=== PATIENT | female | born 1930 | race Caucasian/White ===

== ENCOUNTER → 2019-09-08 | Outpatient (CLI) | payer MEDICARE, OTHER | END | disposition home or self-care (01) | LOC: RADPV 14:51 | PROVIDERS: ATTEND Internal Medicine Geriatric Medicine | DX: J44.9 Chronic obstructive pulmonary disease, unspecified (principal); I70.0 Atherosclerosis of aorta; I51.7 Cardiomegaly ==

== ENCOUNTER → 2019-11-17 | Outpatient (CLI) | payer MEDICARE, OTHER ==
[~2019-11-17] MED LIST: PERFLUTREN PROTEIN-A MICROSPHERES 0.22 MG/ML 3 ML VIAL IVP ONE
== END | disposition home or self-care (01) ==
LOC: RADPV 14:07
PROVIDERS: ATTEND Internal Medicine Cardiovascular Disease
DX: I08.0 Rheumatic disorders of both mitral and aortic valves (principal); I42.9 Cardiomyopathy, unspecified; I50.9 Heart failure, unspecified
CPT/HCPCS: C8929

== ENCOUNTER → 2020-03-14 | Outpatient (CLI) | payer MEDICARE, OTHER ==
[2020-03-14 15:25] LABS: APPEARANCE,URINE CLEAR (CLEAR); BILIRUBIN,URINE NEGATIVE (NEGATIVE); GLUCOSE, URINE (UA) NEGATIVE (NEGATIVE); KETONES,URINE NEGATIVE (NEGATIVE); LEUKOCYTE ESTERASE ,URINE NEGATIVE (NEGATIVE); NITRATE,URINE NEGATIVE (NEGATIVE); OCCULT BLOOD,URINE NEGATIVE (NEGATIVE); PH,URINE 6.5 (5.0-8.0); PROTEIN,URINE NEGATIVE (NEGATIVE)
[2020-03-14 17:51] LABS: BASOPHILS % (AUTO) 0.6 % (0.0-2.0); EOSINOPHILS % (AUTO) 2.1 % (1.0-6.0); HEMATOCRIT 44.8 % (36-46); HEMOGLOBIN 14.7 g/dL (12.0-16.0); LYMPHOCYTES # (AUTO) 3.8 K/uL (1.0-4.8); LYMPHOCYTES % (AUTO) 46.7 % (22.0-44.0); MEAN CORPUSCULAR HEMOGLOBIN 31.6 pg (26.0-34.0); MEAN CORPUSCULAR HGB CONC 32.8 G/dL (31.0-37.0); MEAN CORPUSCULAR VOLUME 96 fL (80-100); MONOCYTES # (AUTO) 0.9 K/uL (0.1-1.0); MONOCYTES % (AUTO) 11.4 % (2.0-9.0); NEUTROPHILS # (AUTO) 3.2 K/uL (1.8-7.7); NEUTROPHILS % (AUTO) 39.2 % (40.0-70.0); PLATELET COUNT (AUTO) 184 K/uL (150-450); RED BLOOD CELL COUNT(AUTO) 4.66 MIL/uL (4.00-5.20); RED CELL DISTRIBUTION WIDTH 14.6 % (11.5-14.5)
[2020-03-14 18:29] LABS: ALBUMIN 3.2 g/dL (3.4-5.0); CALCIUM, TOTAL 9.4 mg/dL (8.8-10.5); CHOL/HDL RATIO 3.1 (3.9-5.7); CREATININE 1.11 mg/dL (0.60-1.30); POTASSIUM 4.4 mmol/L (3.5-5.1); THYROID STIMULATING HORMONE 2.67 uIU/mL (0.36-3.74); TOTAL PROTEIN, SERUM 5.6 g/dL (6.4-8.2)
[2020-03-14 18:53] LABS: HEMOGLOBIN A1C 7.6 % (3.8-5.6)
== END | disposition home or self-care (01) ==
LOC: LABMN 14:50
PROVIDERS: ATTEND Internal Medicine Cardiovascular Disease
DX: D68.69 Other thrombophilia (principal); E26.1 Secondary hyperaldosteronism; I26.99 Other pulmonary embolism without acute cor pulmonale; E11.65 Type 2 diabetes mellitus with hyperglycemia; N39.0 Urinary tract infection, site not specified
CPT/HCPCS: 83036; 84443; 87086

== ENCOUNTER → 2020-03-26 | Outpatient (CLI) | payer MEDICARE, OTHER | END | disposition home or self-care (01) | LOC: LABMN 14:33 | PROVIDERS: ATTEND Internal Medicine Geriatric Medicine | DX: N39.0 Urinary tract infection, site not specified (principal) | CPT/HCPCS: 87086 ==

== ENCOUNTER → 2020-04-17 | Outpatient (CLI) | payer MEDICARE, OTHER ==
[2020-04-17 16:02] LABS: APPEARANCE,URINE CLOUDY (CLEAR); BILIRUBIN,URINE NEGATIVE (NEGATIVE); GLUCOSE, URINE (UA) NEGATIVE (NEGATIVE); KETONES,URINE NEGATIVE (NEGATIVE); LEUKOCYTE ESTERASE ,URINE LARGE (NEGATIVE); NITRATE,URINE NEGATIVE (NEGATIVE); OCCULT BLOOD,URINE NEGATIVE (NEGATIVE); PROTEIN,URINE NEGATIVE (NEGATIVE)
[2020-04-17 16:16] LABS: BACTERIA,URINE Many /HPF (None Seen); RBC,URINE 0-2 /HPF (0-2); SQUAMOUS EPITHELIAL CELL,UR Few /LPF (None Seen); WBC,URINE 51-100 /HPF (0-5)
== END | disposition home or self-care (01) ==
LOC: LABPV 14:45
PROVIDERS: ATTEND Internal Medicine Geriatric Medicine
DX: R41.82 Altered mental status, unspecified (principal)
CPT/HCPCS: 87086

== ENCOUNTER → 2020-05-11 | Outpatient (CLI) | payer MEDICARE, OTHER ==
[2020-05-11 15:17] LABS: APPEARANCE,URINE CLEAR (CLEAR); BILIRUBIN,URINE NEGATIVE (NEGATIVE); GLUCOSE, URINE (UA) NEGATIVE (NEGATIVE); KETONES,URINE NEGATIVE (NEGATIVE); LEUKOCYTE ESTERASE ,URINE NEGATIVE (NEGATIVE); NITRATE,URINE NEGATIVE (NEGATIVE); OCCULT BLOOD,URINE NEGATIVE (NEGATIVE); PH,URINE 5.5 (5.0-8.0); PROTEIN,URINE NEGATIVE (NEGATIVE); UROBILINOGEN,URINE 0.2 mg/dL (<=1.0)
== END | disposition home or self-care (01) ==
LOC: LABPV 13:48
PROVIDERS: ATTEND Internal Medicine Geriatric Medicine
DX: N39.0 Urinary tract infection, site not specified (principal)

== ENCOUNTER → 2020-12-14 | Outpatient (CLI) | payer MEDICARE, OTHER ==
[2020-12-14 14:08] LABS: BASOPHILS % (AUTO) 0.6 % (0.0-2.0); EOSINOPHILS % (AUTO) 3.7 % (1.0-6.0); HEMATOCRIT 39.9 % (36-46); HEMOGLOBIN 12.8 g/dL (12.0-16.0); LYMPHOCYTES # (AUTO) 3.2 K/uL (1.0-4.8); LYMPHOCYTES % (AUTO) 40.7 % (22.0-44.0); MEAN CORPUSCULAR HEMOGLOBIN 30.1 pg (26.0-34.0); MEAN CORPUSCULAR HGB CONC 32.1 G/dL (31.0-37.0); MEAN CORPUSCULAR VOLUME 94 fL (80-100); MONOCYTES # (AUTO) 0.9 K/uL (0.1-1.0); NEUTROPHILS # (AUTO) 3.4 K/uL (1.8-7.7); PLATELET COUNT (AUTO) 189 K/uL (150-450); RED BLOOD CELL COUNT(AUTO) 4.26 MIL/uL (4.00-5.20); RED CELL DISTRIBUTION WIDTH 15.4 % (11.5-14.5)
[2020-12-14 14:23] LABS: ALBUMIN 2.7 g/dL (3.4-5.0); BILIRUBIN,TOTAL 0.7 mg/dL (0.1-1.0); CALCIUM, TOTAL 8.9 mg/dL (8.8-10.5); CHOL/HDL RATIO 2.9 (3.9-5.7); CREATININE 1.47 mg/dL (0.60-1.30); POTASSIUM 4.2 mmol/L (3.5-5.1); TOTAL PROTEIN, SERUM 5.6 g/dL (6.4-8.2)
[2020-12-14 14:43] LABS: HEMOGLOBIN A1C 8.2 % (3.8-5.6)
== END | disposition home or self-care (01) ==
LOC: RADMN 15:24
PROVIDERS: ATTEND Internal Medicine Cardiovascular Disease
DX: I70.0 Atherosclerosis of aorta (principal); I27.20 Pulmonary hypertension, unspecified; I51.7 Cardiomegaly; E11.9 Type 2 diabetes mellitus without complications
CPT/HCPCS: 83036; 36415-L1; 36415-TC; 71046; 71046-TC; 80061-TC

== ENCOUNTER → 2021-02-01 | Outpatient (CLI) | payer MEDICARE, OTHER | END | disposition home or self-care (01) | LOC: RADMN 14:14 | PROVIDERS: ATTEND Internal Medicine Cardiovascular Disease | DX: R13.10 Dysphagia, unspecified (principal) | CPT/HCPCS: 74230; 92611 ==

== ENCOUNTER → 2021-04-10 | Outpatient (CLI) | payer MEDICARE, OTHER | END | disposition home or self-care (01) | LOC: LABMN 09:05 | PROVIDERS: ATTEND Internal Medicine Geriatric Medicine | DX: N39.0 Urinary tract infection, site not specified (principal); A49.8 Other bacterial infections of unspecified site | CPT/HCPCS: 87077; 87086; 87186 ==

== ENCOUNTER 2021-04-28 13:51 | Inpatient (IN) | payer MEDICARE, OTHER ==
[~2021-04-28] VITALS: Ht 149.9 cm; Wt 92.0 kg
[2021-04-28] MEDS ORDERED: POTA8TAB53 PO (14:00)
[2021-04-28] MEDS ORDERED: FURO-152 PO (14:02)
[2021-04-28] MEDS ORDERED: LEVO-72 PO (14:03)
[2021-04-28] MEDS ORDERED: DOCU100C34 PO (14:04)
[2021-04-28] MEDS ORDERED: CLOP75TA60 PO (14:05)
[2021-04-28] MEDS ORDERED: CARV3.1231 PO (14:05)
[2021-04-28] MEDS ORDERED: PANT-31 PO (14:06)
[2021-04-28] MEDS ORDERED: 0.9% SODIUM CHLORIDE 10 ML SYRINGE IVP PRN ×2 (15:00→17:30)
[2021-04-28 15:57] LABS: COVID AG,FIA SOURCE NASOPHARYNGEAL
[2021-04-28 16:00] LABS: BASOPHILS % (AUTO) 0.7 % (0.0-2.0); EOSINOPHILS % (AUTO) 1.6 % (1.0-6.0); HEMATOCRIT 44.2 % (36-46); HEMOGLOBIN 14.3 g/dL (12.0-16.0); LYMPHOCYTES # (AUTO) 4.3 K/uL (1.0-4.8); LYMPHOCYTES % (AUTO) 43.3 % (22.0-44.0); MEAN CORPUSCULAR HEMOGLOBIN 29.7 pg (26.0-34.0); MEAN CORPUSCULAR HGB CONC 32.4 G/dL (31.0-37.0); MEAN CORPUSCULAR VOLUME 92 fL (80-100); MONOCYTES # (AUTO) 1.1 K/uL (0.1-1.0); MONOCYTES % (AUTO) 11.6 % (2.0-9.0); NEUTROPHILS # (AUTO) 4.2 K/uL (1.8-7.7); NEUTROPHILS % (AUTO) 42.8 % (40.0-70.0); PLATELET COUNT (AUTO) 180 K/uL (150-450); RED BLOOD CELL COUNT(AUTO) 4.83 MIL/uL (4.00-5.20); RED CELL DISTRIBUTION WIDTH 16.1 % (11.5-14.5)
[2021-04-28] MEDS ORDERED: NYSTATIN 30 GM CREAM TP ONE (16:00)
[2021-04-28 16:16] LABS: INR 1.1 (0.9-1.1); PROTHROMBIN TIME 11.9 SEC (9.4-11.6)
[2021-04-28 16:17] LABS: APPEARANCE,URINE CLOUDY (CLEAR); BILIRUBIN,URINE NEGATIVE (NEGATIVE); GLUCOSE, URINE (UA) NEGATIVE (NEGATIVE); KETONES,URINE NEGATIVE (NEGATIVE); LEUKOCYTE ESTERASE ,URINE NEGATIVE (NEGATIVE); NITRATE,URINE NEGATIVE (NEGATIVE); OCCULT BLOOD,URINE TRACE (NEGATIVE); PROTEIN,URINE NEGATIVE (NEGATIVE)
[2021-04-28 16:28] LABS: ANION GAP 10 mmol/L (8-16); CALCIUM, TOTAL 9.9 mg/dL (8.8-10.5); CARBON DIOXIDE 27 mmol/L (22-29); CHLORIDE 104 mmol/L (98-107); CREATININE 1.65 mg/dL (0.60-1.30); GLOMERULAR FILTR. RATE CALC 29 mL/min (>60); GLUCOSE,RANDOM 151 mg/dL (70-110); SODIUM SERUM 141 mmol/L (136-145); UREA NITROGEN, BLOOD 33 mg/dL (7-18)
[2021-04-28 16:30] LABS: ALANINE AMINOTRANSFERASE 18 U/L (12-78); ALBUMIN 3.4 g/dL (3.4-5.0); ALKALINE PHOSPHATASE 82 U/L (46-116); ASPARTATE AMINOTRANSFERASE 25 U/L (15-37); BILIRUBIN,TOTAL 0.9 mg/dL (0.1-1.0); LIPASE 57 U/L (73-393); TOTAL PROTEIN, SERUM 6.7 g/dL (6.4-8.2)
[2021-04-28 16:31] LABS: B-TYPE NATRIURETIC PEPTIDE 317 pg/mL (0-100)
[2021-04-28 16:43] LABS: BACTERIA,URINE None Seen /HPF (None Seen); RBC,URINE 0-2 /HPF (0-2); SQUAMOUS EPITHELIAL CELL,UR Moderate /LPF (None Seen); WBC,URINE None Seen /HPF (0-5)
[2021-04-28 16:46] LABS: LACTIC ACID 2.4 mmol/L (0.4-2.0)
[2021-04-28 16:54] LABS: INFLUENZA TYPE A NEGATIVE FOR TYPE A (NEGATIVE); INFLUENZA TYPE B NEGATIVE FOR TYPE B (NEGATIVE)
[2021-04-28] MEDS ORDERED: SODIUM CHLORIDE 0.9% 2,000 ML IV ONE (17:00)
[2021-04-28] MEDS ORDERED: PIPERACILLIN/TAZO 3.375 GM/D5W 50 ML IV ONE (17:00)
[2021-04-28 19:57] VITALS: BP 150/77
[2021-04-28] MEDS ORDERED: POTA20TA83 PO (20:20)
[2021-04-28] MEDS ORDERED: BUDE0.5A3 NEB (20:39)
[2021-04-28] MEDS ORDERED: IPRA4AER IH (20:39)
[2021-04-28] MEDS ORDERED: ARFO15VI2 NEB (20:39)
[2021-04-28] MEDS ORDERED: INSU100V12 SQ (20:40)
[2021-04-28] MEDS ORDERED: MAGNESIUM HYDROXIDE SUSPENSION 30 ML UDCUP PO PRN (21:15)
[2021-04-28] MEDS ORDERED: ONDANSETRON HCL 4 MG/2 ML VIAL IVP PRN (21:15)
[2021-04-28] MEDS ORDERED: BISACODYL 10 MG RECTAL RECTAL SUPPOSITORY PR PRN (21:15)
[2021-04-28] MEDS ORDERED: HEPARIN SODIUM,PORCINE 5,000 UNITS/ML VIAL SQ SCH (21:15)
[2021-04-28] MEDS: INSULIN GLARGINE,HUM.REC.ANLOG 100 UNITS/ML SQ SCH (21:45)
[2021-04-28] MEDS ORDERED: DEXTROSE 50%-WATER 25 GM/50 ML SYRINGE IVP PRN (21:45)
[2021-04-28] MEDS: HEPARIN SODIUM,PORCINE 5,000 UNITS/ML VIAL SQ SCH (22:24)
[2021-04-28] MEDS: FUROSEMIDE 40 MG TABLET PO SCH (22:29)
[2021-04-28] MEDS: BUDESONIDE 0.5 MG/2 ML NEB SOLUTION NEB SCH (23:09)
[2021-04-28 23:37] VITALS: BP 159/71
[2021-04-29] MEDS: PIPERACILLIN SODIUM/TAZOBACTAM 2.25 GM in DEXTROSE 5%-WATER 50 ML IV SCH ×4 (00:26→23:57)
[2021-04-29 05:51] VITALS: BP 128/56
[2021-04-29 06:03] LABS: BASOPHILS % (AUTO) 0.5 % (0.0-2.0); EOSINOPHILS % (AUTO) 2.2 % (1.0-6.0); HEMATOCRIT 39.1 % (36-46); HEMOGLOBIN 12.8 g/dL (12.0-16.0); LYMPHOCYTES # (AUTO) 4.3 K/uL (1.0-4.8); LYMPHOCYTES % (AUTO) 47.9 % (22.0-44.0); MEAN CORPUSCULAR HEMOGLOBIN 29.7 pg (26.0-34.0); MEAN CORPUSCULAR HGB CONC 32.9 G/dL (31.0-37.0); MEAN CORPUSCULAR VOLUME 91 fL (80-100); MONOCYTES # (AUTO) 1.2 K/uL (0.1-1.0); MONOCYTES % (AUTO) 13.4 % (2.0-9.0); NEUTROPHILS # (AUTO) 3.2 K/uL (1.8-7.7); PLATELET COUNT (AUTO) 162 K/uL (150-450); RED BLOOD CELL COUNT(AUTO) 4.32 MIL/uL (4.00-5.20); RED CELL DISTRIBUTION WIDTH 16.2 % (11.5-14.5)
[2021-04-29] MEDS: INSULIN LISPRO 100 UNITS/ML SQ PRN ×4 (06:19→20:40)
[2021-04-29 06:26] LABS: GLUCOMETER DEV NAME(LOC) 5S.1; GLUCOSE,POINT OF CARE 130 MG/DL (70-110)
[2021-04-29 06:33] LABS: LACTIC ACID 1.6 mmol/L (0.4-2.0)
[2021-04-29 06:36] LABS: ALBUMIN 2.8 g/dL (3.4-5.0); BILIRUBIN,TOTAL 1.2 mg/dL (0.1-1.0); CALCIUM, TOTAL 8.9 mg/dL (8.8-10.5); CHOL/HDL RATIO 2.9 (3.9-5.7); CREATININE 1.71 mg/dL (0.60-1.30); FREE T4 (FREE THYROXINE) 1.44 ng/dL (0.76-1.46); MAGNESIUM 1.9 mg/dL (1.80-2.40); PHOSPHORUS 3.5 mg/dL (2.5-4.9); POTASSIUM 3.7 mmol/L (3.5-5.1); THYROID STIMULATING HORMONE 1.92 uIU/mL (0.36-3.74); TOTAL PROTEIN, SERUM 5.5 g/dL (6.4-8.2)
[2021-04-29 07:04] LABS: HEMOGLOBIN A1C 7.9 % (3.8-5.6)
[2021-04-29 07:25] VITALS: BP 125/53
[2021-04-29] MEDS: HEPARIN SODIUM,PORCINE 5,000 UNITS/ML VIAL SQ SCH (08:40)
[2021-04-29] MEDS: CARVEDILOL 6.25 MG TABLET PO SCH ×2 (08:40→20:28)
[2021-04-29] MEDS: POTASSIUM CHLORIDE 20 MEQ ER TABLET PO SCH (08:40)
[2021-04-29] MEDS: PANTOPRAZOLE SODIUM 40 MG DR TABLET PO SCH (08:40)
[2021-04-29] MEDS: DOCUSATE SODIUM 100 MG CAPSULE PO SCH (08:40)
[2021-04-29] MEDS: FUROSEMIDE 40 MG TABLET PO SCH (08:40)
[2021-04-29] MEDS: CLOPIDOGREL BISULFATE 75 MG TABLET PO SCH (08:40)
[2021-04-29] MEDS: ALBUTEROL SULFATE/IPRATROPIUM 100-20 MCG/SPRAY 4 GM INHALER IH SCH ×3 (08:55→20:40)
[2021-04-29] MEDS ORDERED: ARFORMOTEROL TARTRATE 15 MCG IH SCH (09:00)
[2021-04-29] MEDS ORDERED: BUDESONIDE 0.5 MG/2 ML NEB SOLUTION NEB SCH (09:00)
[2021-04-29] MEDS: BUDESONIDE 0.5 MG/2 ML NEB SOLUTION NEB SCH ×2 (09:28→19:44)
[2021-04-29 11:40] VITALS: BP 131/66
[2021-04-29] MEDS: NYSTATIN 30 GM CREAM TP SCH ×2 (13:20→20:30)
[2021-04-29 16:00] VITALS: BP 128/60
[2021-04-29] MEDS: ARFORMOTEROL TARTRATE 15 MCG IH SCH ×2 (16:44→20:40)
[2021-04-29] MEDS ORDERED: CARV6 PO (18:47)
[2021-04-29 19:15] VITALS: BP 148/59
[2021-04-29] MEDS ORDERED: HEPARIN SODIUM,PORCINE 5,000 UNITS/ML VIAL IVP ONE (20:00)
[2021-04-29] MEDS ORDERED: HEPARIN SODIUM 25000 UNITS/D5W 250 ML IV PRN (20:00)
[2021-04-29] MEDS ORDERED: HEPARIN SODIUM,PORCINE 5,000 UNITS/ML VIAL IVP PRN ×2 (20:00)
[2021-04-29] MEDS: BUMETANIDE 0.25 MG/ML 4 ML VIAL IVP SCH (20:29)
[2021-04-29] MEDS: INSULIN GLARGINE,HUM.REC.ANLOG 100 UNITS/ML SQ SCH (20:37)
[2021-04-29] MEDS ORDERED: INSULIN DETEMIR 100 UNITS/ML SQ SCH (21:00)
[2021-04-30] VITALS (7 sets, daily range): BP systolic 103–157; BP diastolic 49–74
[2021-04-30 04:55] LABS: BASOPHILS % (AUTO) 0.3 % (0.0-2.0); EOSINOPHILS % (AUTO) 1.6 % (1.0-6.0); HEMATOCRIT 37.6 % (36-46); HEMOGLOBIN 12.3 g/dL (12.0-16.0); LYMPHOCYTES # (AUTO) 5.1 K/uL (1.0-4.8); LYMPHOCYTES % (AUTO) 46.5 % (22.0-44.0); MEAN CORPUSCULAR HEMOGLOBIN 29.5 pg (26.0-34.0); MEAN CORPUSCULAR HGB CONC 32.7 G/dL (31.0-37.0); MEAN CORPUSCULAR VOLUME 90 fL (80-100); MONOCYTES # (AUTO) 1.4 K/uL (0.1-1.0); MONOCYTES % (AUTO) 12.2 % (2.0-9.0); NEUTROPHILS # (AUTO) 4.4 K/uL (1.8-7.7); NEUTROPHILS % (AUTO) 39.4 % (40.0-70.0); PLATELET COUNT (AUTO) 163 K/uL (150-450); RED BLOOD CELL COUNT(AUTO) 4.17 MIL/uL (4.00-5.20); RED CELL DISTRIBUTION WIDTH 16.1 % (11.5-14.5)
[2021-04-30 05:11] LABS: ALBUMIN 2.4 g/dL (3.4-5.0); BILIRUBIN,TOTAL 1.2 mg/dL (0.1-1.0); CALCIUM, TOTAL 8.7 mg/dL (8.8-10.5); CREATININE 1.67 mg/dL (0.60-1.30); MAGNESIUM 1.9 mg/dL (1.80-2.40); PHOSPHORUS 3.1 mg/dL (2.5-4.9); POTASSIUM 3.5 mmol/L (3.5-5.1); TOTAL PROTEIN, SERUM 5.3 g/dL (6.4-8.2)
[2021-04-30] MEDS: INSULIN LISPRO 100 UNITS/ML SQ PRN ×4 (06:10→20:14)
[2021-04-30 07:46] LABS: GLUCOMETER DEV NAME(LOC) 5S.2B; GLUCOSE,POINT OF CARE 197 MG/DL (70-110)
[2021-04-30 07:46] LABS: GLUCOMETER DEV NAME(LOC) 5S.2B; GLUCOSE,POINT OF CARE 190 MG/DL (70-110)
[2021-04-30 07:46] LABS: GLUCOMETER DEV NAME(LOC) 5S.2B; GLUCOSE,POINT OF CARE 220 MG/DL (70-110)
[2021-04-30 07:46] LABS: GLUCOMETER DEV NAME(LOC) 5S.2B; GLUCOSE,POINT OF CARE 213 MG/DL (70-110)
[2021-04-30 07:47] LABS: GLUCOMETER DEV NAME(LOC) 5S.2B; GLUCOSE,POINT OF CARE 194 MG/DL (70-110)
[2021-04-30] MEDS: CLOPIDOGREL BISULFATE 75 MG TABLET PO SCH (07:53)
[2021-04-30] MEDS: ALBUTEROL SULFATE/IPRATROPIUM 100-20 MCG/SPRAY 4 GM INHALER IH SCH ×3 (07:53→19:48)
[2021-04-30] MEDS: BUDESONIDE 0.5 MG/2 ML NEB SOLUTION NEB SCH ×2 (08:13→19:47)
[2021-04-30] MEDS: PIPERACILLIN SODIUM/TAZOBACTAM 2.25 GM in DEXTROSE 5%-WATER 50 ML IV SCH (08:17)
[2021-04-30] MEDS: ARFORMOTEROL TARTRATE 15 MCG IH SCH ×2 (09:29→19:47)
[2021-04-30] MEDS: BUMETANIDE 0.25 MG/ML 4 ML VIAL IVP SCH ×2 (09:38→19:51)
[2021-04-30] MEDS: DOCUSATE SODIUM 100 MG CAPSULE PO SCH (09:39)
[2021-04-30] MEDS: PANTOPRAZOLE SODIUM 40 MG DR TABLET PO SCH (09:41)
[2021-04-30] MEDS: CARVEDILOL 6.25 MG TABLET PO SCH ×2 (09:41→19:50)
[2021-04-30] MEDS: NYSTATIN 30 GM CREAM TP SCH ×2 (09:41→19:52)
[2021-04-30] MEDS: POTASSIUM CHLORIDE 20 MEQ ER TABLET PO SCH (09:41)
[2021-04-30] MEDS: APIXABAN 2.5 MG TABLET PO SCH ×2 (09:48→19:50)
[2021-04-30 12:10] LABS: GLUCOMETER DEV NAME(LOC) 5S.1; GLUCOSE,POINT OF CARE 283 MG/DL (70-110)
[2021-04-30 12:14] LABS: URIC ACID 9.8 mg/dL (2.6-7.2)
[2021-04-30] MEDS ORDERED: DEXTROSE 50%-WATER 25 GM/50 ML SYRINGE IVP PRN (12:30)
[2021-04-30] MEDS ORDERED: PIPERACILLIN SODIUM/TAZOBACTAM 2.25 GM in DEXTROSE 5%-WATER 50 ML IV SCH (14:00)
[2021-04-30] MEDS ORDERED: INSULIN LISPRO 100 UNITS/ML SQ ONE (14:30)
[2021-04-30] MEDS: MethylPREDNISolone SOD SUCC 40 MG/ML VIAL IVP SCH ×3 (17:15→21:00)
[2021-04-30] MEDS: INSULIN GLARGINE,HUM.REC.ANLOG 100 UNITS/ML SQ SCH (20:14)
[2021-05-01 00:11] VITALS: BP 133/58
[2021-05-01 04:51] VITALS: BP 159/72
[2021-05-01] MEDS: INSULIN LISPRO 100 UNITS/ML SQ PRN ×4 (05:17→20:56)
[2021-05-01 05:56] LABS: BASOPHILS % (AUTO) 0.1 % (0.0-2.0); EOSINOPHILS % (AUTO) 0 % (1.0-6.0); HEMATOCRIT 39.8 % (36-46); HEMOGLOBIN 13.2 g/dL (12.0-16.0); LYMPHOCYTES # (AUTO) 3.2 K/uL (1.0-4.8); LYMPHOCYTES % (AUTO) 33.4 % (22.0-44.0); MEAN CORPUSCULAR HEMOGLOBIN 29.9 pg (26.0-34.0); MEAN CORPUSCULAR HGB CONC 33.2 G/dL (31.0-37.0); MEAN CORPUSCULAR VOLUME 90 fL (80-100); MONOCYTES # (AUTO) 0.6 K/uL (0.1-1.0); MONOCYTES % (AUTO) 6.3 % (2.0-9.0); NEUTROPHILS # (AUTO) 5.8 K/uL (1.8-7.7); NEUTROPHILS % (AUTO) 60.2 % (40.0-70.0); PLATELET COUNT (AUTO) 167 K/uL (150-450); RED BLOOD CELL COUNT(AUTO) 4.43 MIL/uL (4.00-5.20); RED CELL DISTRIBUTION WIDTH 15.8 % (11.5-14.5)
[2021-05-01 06:46] LABS: GLUCOMETER DEV NAME(LOC) 5S.1; GLUCOSE,POINT OF CARE 275 MG/DL (70-110)
[2021-05-01 06:47] LABS: GLUCOMETER DEV NAME(LOC) 5S.1; GLUCOSE,POINT OF CARE 354 MG/DL (70-110)
[2021-05-01 06:57] LABS: CALCIUM, TOTAL 8.9 mg/dL (8.8-10.5); CREATININE 1.51 mg/dL (0.60-1.30); MAGNESIUM 2.5 mg/dL (1.80-2.40); PHOSPHORUS 3.1 mg/dL (2.5-4.9); POTASSIUM 4.4 mmol/L (3.5-5.1)
[2021-05-01 07:39] VITALS: BP 131/45
[2021-05-01] MEDS: BUDESONIDE 0.5 MG/2 ML NEB SOLUTION NEB SCH ×3 (08:11→19:42)
[2021-05-01] MEDS: DOCUSATE SODIUM 100 MG CAPSULE PO SCH (08:12)
[2021-05-01] MEDS: MethylPREDNISolone SOD SUCC 40 MG/ML VIAL IVP SCH (08:12)
[2021-05-01] MEDS: APIXABAN 2.5 MG TABLET PO SCH (08:13)
[2021-05-01] MEDS: PANTOPRAZOLE SODIUM 40 MG DR TABLET PO SCH (08:13)
[2021-05-01] MEDS: CARVEDILOL 6.25 MG TABLET PO SCH ×2 (08:13→20:55)
[2021-05-01] MEDS: POTASSIUM CHLORIDE 20 MEQ ER TABLET PO SCH (08:13)
[2021-05-01] MEDS: NYSTATIN 30 GM CREAM TP SCH ×2 (08:14→20:53)
[2021-05-01] MEDS: ALBUTEROL SULFATE/IPRATROPIUM 100-20 MCG/SPRAY 4 GM INHALER IH SCH ×4 (08:15→20:54)
[2021-05-01] MEDS: ARFORMOTEROL TARTRATE 15 MCG IH SCH ×2 (09:59→19:42)
[2021-05-01 11:14] VITALS: BP 128/58
[2021-05-01] MEDS: BUMETANIDE 1 MG TABLET PO SCH ×2 (12:04→20:54)
[2021-05-01 14:56] VITALS: BP 128/57
[2021-05-01 15:06] LABS: GLUCOMETER DEV NAME(LOC) 5N.1C; GLUCOSE,POINT OF CARE 372 MG/DL (70-110)
[2021-05-01] MEDS: CEFEPIME HCL 2 GM in DEXTROSE 5%-WATER 50 ML IV SCH (15:14)
[2021-05-01] MEDS ORDERED: ACYCLOVIR 5% 15 GM OINTMENT TP PRN (15:45)
[2021-05-01] MEDS ORDERED: INSULIN LISPRO 100 UNITS/ML SQ PRN (17:15)
[2021-05-01 19:39] VITALS: BP 137/49
[2021-05-01] MEDS: APIXABAN 5 MG TABLET PO SCH (20:55)
[2021-05-01] MEDS: INSULIN GLARGINE,HUM.REC.ANLOG 100 UNITS/ML SQ SCH (20:56)
[2021-05-01 22:35] LABS: GLUCOMETER DEV NAME(LOC) 5S.1; GLUCOSE,POINT OF CARE 429 MG/DL (70-110)
[2021-05-02 00:07] VITALS: BP 134/44
[2021-05-02 02:02] LABS: GLUCOMETER DEV NAME(LOC) 5S.2B; GLUCOSE,POINT OF CARE 436 MG/DL (70-110)
[2021-05-02 04:42] VITALS: BP 135/63
[2021-05-02] MEDS: INSULIN LISPRO 100 UNITS/ML SQ PRN ×3 (05:50→20:19)
[2021-05-02 06:19] LABS: BASOPHILS % (AUTO) 0.1 % (0.0-2.0); EOSINOPHILS % (AUTO) 0.5 % (1.0-6.0); HEMATOCRIT 36.2 % (36-46); HEMOGLOBIN 11.9 g/dL (12.0-16.0); LYMPHOCYTES % (AUTO) 32.3 % (22.0-44.0); MEAN CORPUSCULAR HEMOGLOBIN 29.5 pg (26.0-34.0); MEAN CORPUSCULAR HGB CONC 32.8 G/dL (31.0-37.0); MEAN CORPUSCULAR VOLUME 90 fL (80-100); MONOCYTES # (AUTO) 1.1 K/uL (0.1-1.0); MONOCYTES % (AUTO) 9.2 % (2.0-9.0); NEUTROPHILS # (AUTO) 7.2 K/uL (1.8-7.7); NEUTROPHILS % (AUTO) 57.9 % (40.0-70.0); PLATELET COUNT (AUTO) 168 K/uL (150-450); RED BLOOD CELL COUNT(AUTO) 4.03 MIL/uL (4.00-5.20); RED CELL DISTRIBUTION WIDTH 15.9 % (11.5-14.5)
[2021-05-02 06:59] LABS: ALANINE AMINOTRANSFERASE 13 U/L (12-78); ALBUMIN 2.3 g/dL (3.4-5.0); ALKALINE PHOSPHATASE 59 U/L (46-116); ANION GAP 8 mmol/L (8-16); ASPARTATE AMINOTRANSFERASE 15 U/L (15-37); BILIRUBIN,TOTAL 0.5 mg/dL (0.1-1.0); CALCIUM, TOTAL 8.4 mg/dL (8.8-10.5); CARBON DIOXIDE 28 mmol/L (22-29); CHLORIDE 103 mmol/L (98-107); CREATININE 1.39 mg/dL (0.60-1.30); GLOMERULAR FILTR. RATE CALC 36 mL/min (>60); GLUCOSE,RANDOM 306 mg/dL (70-110); POTASSIUM 4.4 mmol/L (3.5-5.1); SODIUM SERUM 139 mmol/L (136-145); TOTAL PROTEIN, SERUM 5.3 g/dL (6.4-8.2); UREA NITROGEN, BLOOD 47 mg/dL (7-18)
[2021-05-02 07:31] VITALS: BP 141/53
[2021-05-02] MEDS ORDERED: MethylPREDNISolone SOD SUCC 40 MG/ML VIAL IVP SCH (08:00)
[2021-05-02] MEDS: APIXABAN 5 MG TABLET PO SCH ×2 (08:04→20:15)
[2021-05-02] MEDS: BUMETANIDE 1 MG TABLET PO SCH ×2 (08:04→20:15)
[2021-05-02] MEDS: PANTOPRAZOLE SODIUM 40 MG DR TABLET PO SCH (08:05)
[2021-05-02] MEDS: NYSTATIN 30 GM CREAM TP SCH ×2 (08:05→20:17)
[2021-05-02] MEDS: POTASSIUM CHLORIDE 20 MEQ ER TABLET PO SCH (08:05)
[2021-05-02] MEDS: DOCUSATE SODIUM 100 MG CAPSULE PO SCH (08:05)
[2021-05-02] MEDS: CARVEDILOL 6.25 MG TABLET PO SCH ×2 (08:05→20:15)
[2021-05-02] MEDS: ALBUTEROL SULFATE/IPRATROPIUM 100-20 MCG/SPRAY 4 GM INHALER IH SCH ×4 (08:06→20:15)
[2021-05-02] MEDS: ARFORMOTEROL TARTRATE 15 MCG IH SCH ×3 (08:29→20:29)
[2021-05-02] MEDS: BUDESONIDE 0.5 MG/2 ML NEB SOLUTION NEB SCH ×2 (08:29→20:25)
[2021-05-02 11:30] VITALS: BP 139/56
[2021-05-02] MEDS: CEFEPIME HCL 2 GM in DEXTROSE 5%-WATER 50 ML IV SCH (13:49)
[2021-05-02 14:15] LABS: GLUCOMETER DEV NAME(LOC) 5S.2B; GLUCOSE,POINT OF CARE 298 MG/DL (70-110)
[2021-05-02 14:15] LABS: GLUCOMETER DEV NAME(LOC) 5S.2B; GLUCOSE,POINT OF CARE 316 MG/DL (70-110)
[2021-05-02] MEDS: INSULIN GLARGINE,HUM.REC.ANLOG 100 UNITS/ML SQ SCH (20:19)
[2021-05-02] MEDS: ACETAMINOPHEN 325 MG TABLET PO PRN (20:24)
[2021-05-02 20:35] VITALS: BP 136/58
[2021-05-03 01:21] LABS: GLUCOMETER DEV NAME(LOC) 5S.1; GLUCOSE,POINT OF CARE 471 MG/DL (70-110)
[2021-05-03 01:46] VITALS: BP 144/55
[2021-05-03] MEDS: INSULIN LISPRO 100 UNITS/ML SQ PRN ×4 (06:07→20:13)
[2021-05-03 06:24] LABS: BASOPHILS % (AUTO) 0.4 % (0.0-2.0); EOSINOPHILS % (AUTO) 1.2 % (1.0-6.0); HEMATOCRIT 38.5 % (36-46); HEMOGLOBIN 12.7 g/dL (12.0-16.0); LYMPHOCYTES # (AUTO) 4.9 K/uL (1.0-4.8); LYMPHOCYTES % (AUTO) 38.5 % (22.0-44.0); MEAN CORPUSCULAR HEMOGLOBIN 29.7 pg (26.0-34.0); MEAN CORPUSCULAR HGB CONC 32.9 G/dL (31.0-37.0); MEAN CORPUSCULAR VOLUME 90 fL (80-100); MONOCYTES # (AUTO) 1.4 K/uL (0.1-1.0); MONOCYTES % (AUTO) 11.3 % (2.0-9.0); NEUTROPHILS # (AUTO) 6.1 K/uL (1.8-7.7); NEUTROPHILS % (AUTO) 48.6 % (40.0-70.0); PLATELET COUNT (AUTO) 194 K/uL (150-450); RED BLOOD CELL COUNT(AUTO) 4.28 MIL/uL (4.00-5.20); RED CELL DISTRIBUTION WIDTH 16.1 % (11.5-14.5)
[2021-05-03 07:02] LABS: CALCIUM, TOTAL 8.5 mg/dL (8.8-10.5); CREATININE 1.39 mg/dL (0.60-1.30)
[2021-05-03 07:06] LABS: MAGNESIUM 2.4 mg/dL (1.80-2.40); PHOSPHORUS 2.5 mg/dL (2.5-4.9)
[2021-05-03 07:46] VITALS: BP 131/63
[2021-05-03 07:58] LABS: GLUCOMETER DEV NAME(LOC) 5S.2B; GLUCOSE,POINT OF CARE 443 MG/DL (70-110)
[2021-05-03] MEDS: BUMETANIDE 1 MG TABLET PO SCH ×2 (08:47→20:16)
[2021-05-03] MEDS: DOCUSATE SODIUM 100 MG CAPSULE PO SCH (08:48)
[2021-05-03] MEDS: CARVEDILOL 6.25 MG TABLET PO SCH ×2 (08:50→20:16)
[2021-05-03] MEDS: APIXABAN 5 MG TABLET PO SCH ×2 (08:50→20:16)
[2021-05-03] MEDS: OMEPRAZOLE 20 MG CAPSULE PO SCH (08:50)
[2021-05-03] MEDS: POTASSIUM CHLORIDE 20 MEQ ER TABLET PO SCH (08:50)
[2021-05-03] MEDS: PredniSONE 20 MG TABLET PO SCH (08:50)
[2021-05-03] MEDS: NYSTATIN 30 GM CREAM TP SCH ×2 (08:50→20:16)
[2021-05-03] MEDS: ALBUTEROL SULFATE/IPRATROPIUM 100-20 MCG/SPRAY 4 GM INHALER IH SCH ×3 (08:51→20:17)
[2021-05-03] MEDS ORDERED: BUME1TAB6 PO (08:53)
[2021-05-03] MEDS ORDERED: PRED20 PO (08:53)
[2021-05-03] MEDS ORDERED: APIX5TAB PO (08:53)
[2021-05-03] MEDS: ARFORMOTEROL TARTRATE 15 MCG IH SCH ×2 (09:21→20:49)
[2021-05-03] MEDS: BUDESONIDE 0.5 MG/2 ML NEB SOLUTION NEB SCH ×2 (09:21→20:46)
[2021-05-03 11:42] LABS: GLUCOMETER DEV NAME(LOC) 5N.1C; GLUCOSE,POINT OF CARE 279 MG/DL (70-110)
[2021-05-03 12:00] VITALS: BP 132/64
[2021-05-03] MEDS ORDERED: SODIUM CHLORIDE 0.9% 250 ML IV ONE (13:29)
[2021-05-03] MEDS: CEFEPIME HCL 2 GM in DEXTROSE 5%-WATER 50 ML IV SCH (13:36)
[2021-05-03 14:28] LABS: GLUCOMETER DEV NAME(LOC) 5S.2B; GLUCOSE,POINT OF CARE 256 MG/DL (70-110)
[2021-05-03 15:27] VITALS: BP 147/95
[2021-05-03 19:10] VITALS: BP 137/45
[2021-05-03] MEDS: INSULIN GLARGINE,HUM.REC.ANLOG 100 UNITS/ML SQ SCH (20:15)
[2021-05-03] MEDS: ACETAMINOPHEN 325 MG TABLET PO PRN (20:16)
[2021-05-03 23:30] VITALS: BP 140/57
[2021-05-04 04:32] VITALS: BP 149/83
[2021-05-04] MEDS: INSULIN LISPRO 100 UNITS/ML SQ PRN ×4 (05:54→20:36)
[2021-05-04 07:12] VITALS: BP 145/66
[2021-05-04 08:07] LABS: GLUCOMETER DEV NAME(LOC) 5N.1C; GLUCOSE,POINT OF CARE 379 MG/DL (70-110)
[2021-05-04 08:07] LABS: GLUCOMETER DEV NAME(LOC) 5N.1C; GLUCOSE,POINT OF CARE 347 MG/DL (70-110)
[2021-05-04] MEDS: ALBUTEROL SULFATE/IPRATROPIUM 100-20 MCG/SPRAY 4 GM INHALER IH SCH ×3 (08:14→21:00)
[2021-05-04] MEDS: BUMETANIDE 1 MG TABLET PO SCH ×2 (08:14→20:27)
[2021-05-04] MEDS: PredniSONE 20 MG TABLET PO SCH (08:15)
[2021-05-04] MEDS: POTASSIUM CHLORIDE 20 MEQ ER TABLET PO SCH (08:15)
[2021-05-04] MEDS: CARVEDILOL 6.25 MG TABLET PO SCH ×2 (08:15→20:27)
[2021-05-04] MEDS: APIXABAN 5 MG TABLET PO SCH ×2 (08:15→20:27)
[2021-05-04] MEDS: DOCUSATE SODIUM 100 MG CAPSULE PO SCH (08:15)
[2021-05-04] MEDS: NYSTATIN 30 GM CREAM TP SCH ×2 (08:16→20:28)
[2021-05-04] MEDS: OMEPRAZOLE 20 MG CAPSULE PO SCH (08:16)
[2021-05-04] MEDS: BUDESONIDE 0.5 MG/2 ML NEB SOLUTION NEB SCH ×2 (09:04→20:52)
[2021-05-04] MEDS: ARFORMOTEROL TARTRATE 15 MCG IH SCH ×2 (09:04→20:52)
[2021-05-04 10:51] VITALS: BP 139/61
[2021-05-04 11:27] LABS: BASOPHILS % (AUTO) 0.4 % (0.0-2.0); EOSINOPHILS % (AUTO) 2.3 % (1.0-6.0); HEMATOCRIT 40.2 % (36-46); HEMOGLOBIN 13.1 g/dL (12.0-16.0); LYMPHOCYTES # (AUTO) 4.6 K/uL (1.0-4.8); LYMPHOCYTES % (AUTO) 39.5 % (22.0-44.0); MEAN CORPUSCULAR HGB CONC 32.4 G/dL (31.0-37.0); MEAN CORPUSCULAR VOLUME 90 fL (80-100); MONOCYTES # (AUTO) 1.5 K/uL (0.1-1.0); MONOCYTES % (AUTO) 13.4 % (2.0-9.0); NEUTROPHILS # (AUTO) 5.1 K/uL (1.8-7.7); NEUTROPHILS % (AUTO) 44.4 % (40.0-70.0); PLATELET COUNT (AUTO) 195 K/uL (150-450); RED CELL DISTRIBUTION WIDTH 15.9 % (11.5-14.5)
[2021-05-04] MEDS: CEFEPIME HCL 2 GM in DEXTROSE 5%-WATER 50 ML IV SCH (12:05)
[2021-05-04 15:10] VITALS: BP 150/56
[2021-05-04 15:39] LABS: GLUCOMETER DEV NAME(LOC) 5N.1C; GLUCOSE,POINT OF CARE 201 MG/DL (70-110)
[2021-05-04 15:40] LABS: GLUCOMETER DEV NAME(LOC) 5N.3; GLUCOSE,POINT OF CARE 264 MG/DL (70-110)
[2021-05-04 19:57] LABS: GLUCOMETER DEV NAME(LOC) 5S.2B; GLUCOSE,POINT OF CARE 356 MG/DL (70-110)
[2021-05-04 20:09] VITALS: BP 119/63
[2021-05-04] MEDS: ACETAMINOPHEN 325 MG TABLET PO PRN (20:30)
[2021-05-04] MEDS: INSULIN GLARGINE,HUM.REC.ANLOG 100 UNITS/ML SQ SCH (20:37)
[2021-05-04 22:04] LABS: GLUCOMETER DEV NAME(LOC) 5S.1; GLUCOSE,POINT OF CARE 339 MG/DL (70-110)
[2021-05-05 01:15] VITALS: BP 140/58
[2021-05-05 05:52] LABS: BASOPHILS % (AUTO) 0.3 % (0.0-2.0); EOSINOPHILS % (AUTO) 2.6 % (1.0-6.0); HEMATOCRIT 38.9 % (36-46); HEMOGLOBIN 12.8 g/dL (12.0-16.0); LYMPHOCYTES # (AUTO) 6.6 K/uL (1.0-4.8); LYMPHOCYTES % (AUTO) 50.6 % (22.0-44.0); MEAN CORPUSCULAR HEMOGLOBIN 29.7 pg (26.0-34.0); MEAN CORPUSCULAR HGB CONC 32.9 G/dL (31.0-37.0); MEAN CORPUSCULAR VOLUME 90 fL (80-100); MONOCYTES # (AUTO) 1.3 K/uL (0.1-1.0); MONOCYTES % (AUTO) 10.1 % (2.0-9.0); NEUTROPHILS # (AUTO) 4.8 K/uL (1.8-7.7); NEUTROPHILS % (AUTO) 36.4 % (40.0-70.0); PLATELET COUNT (AUTO) 224 K/uL (150-450); RED BLOOD CELL COUNT(AUTO) 4.31 MIL/uL (4.00-5.20); RED CELL DISTRIBUTION WIDTH 16.3 % (11.5-14.5)
[2021-05-05 05:57] VITALS: BP 145/82
[2021-05-05] MEDS: INSULIN LISPRO 100 UNITS/ML SQ PRN ×3 (06:08→21:03)
[2021-05-05 06:44] LABS: ALBUMIN 2.5 g/dL (3.4-5.0); BILIRUBIN,TOTAL 0.6 mg/dL (0.1-1.0); CALCIUM, TOTAL 9.3 mg/dL (8.8-10.5); CREATININE 1.13 mg/dL (0.60-1.30); POTASSIUM 3.7 mmol/L (3.5-5.1); TOTAL PROTEIN, SERUM 5.4 g/dL (6.4-8.2)
[2021-05-05 07:44] VITALS: BP 154/82
[2021-05-05] MEDS: PredniSONE 20 MG TABLET PO SCH (07:49)
[2021-05-05] MEDS: CARVEDILOL 6.25 MG TABLET PO SCH ×2 (08:37→20:54)
[2021-05-05] MEDS: BUMETANIDE 1 MG TABLET PO SCH ×2 (08:37→20:54)
[2021-05-05] MEDS: OMEPRAZOLE 20 MG CAPSULE PO SCH (08:37)
[2021-05-05] MEDS: APIXABAN 5 MG TABLET PO SCH ×2 (08:37→20:54)
[2021-05-05 08:38] LABS: GLUCOMETER DEV NAME(LOC) 5N.1C; GLUCOSE,POINT OF CARE 181 MG/DL (70-110)
[2021-05-05] MEDS: POTASSIUM CHLORIDE 20 MEQ ER TABLET PO SCH (08:38)
[2021-05-05] MEDS: NYSTATIN 30 GM CREAM TP SCH ×2 (08:38→21:04)
[2021-05-05] MEDS: ALBUTEROL SULFATE/IPRATROPIUM 100-20 MCG/SPRAY 4 GM INHALER IH SCH ×3 (08:38→21:00)
[2021-05-05] MEDS: BUDESONIDE 0.5 MG/2 ML NEB SOLUTION NEB SCH ×2 (09:13→20:58)
[2021-05-05] MEDS: ARFORMOTEROL TARTRATE 15 MCG IH SCH ×2 (09:15→20:58)
[2021-05-05 11:00] VITALS: BP 150/84
[2021-05-05] MEDS ORDERED: PredniSONE 10 MG TABLET PO ONE (11:15)
[2021-05-05] MEDS: CEFEPIME HCL 2 GM in DEXTROSE 5%-WATER 50 ML IV SCH (13:22)
[2021-05-05] MEDS: DOCUSATE SODIUM 100 MG CAPSULE PO SCH (14:43)
[2021-05-05 15:00] VITALS: BP 142/68
[2021-05-05 20:08] LABS: GLUCOMETER DEV NAME(LOC) 5N.1C; GLUCOSE,POINT OF CARE 326 MG/DL (70-110)
[2021-05-05 20:08] LABS: GLUCOMETER DEV NAME(LOC) 5N.1C; GLUCOSE,POINT OF CARE 240 MG/DL (70-110)
[2021-05-05 20:21] VITALS: BP 141/58
[2021-05-05] MEDS: INSULIN GLARGINE,HUM.REC.ANLOG 100 UNITS/ML SQ SCH (21:02)
[2021-05-05 21:52] LABS: GLUCOMETER DEV NAME(LOC) 5N.3; GLUCOSE,POINT OF CARE 420 MG/DL (70-110)
[2021-05-06] MEDS ORDERED: CEFEPIME HCL 2 GM in DEXTROSE 5%-WATER 50 ML IV SCH ×2
[2021-05-06 00:11] VITALS: BP 138/46
[2021-05-06 04:22] VITALS: BP 143/71
[2021-05-06] MEDS: INSULIN LISPRO 100 UNITS/ML SQ PRN ×2 (06:09→12:12)
[2021-05-06 07:30] VITALS: BP 141/51
[2021-05-06 08:23] LABS: BASOPHILS % (AUTO) 0.3 % (0.0-2.0); EOSINOPHILS % (AUTO) 2.5 % (1.0-6.0); HEMATOCRIT 40.4 % (36-46); HEMOGLOBIN 13.3 g/dL (12.0-16.0); LYMPHOCYTES # (AUTO) 6.8 K/uL (1.0-4.8); LYMPHOCYTES % (AUTO) 51.4 % (22.0-44.0); MEAN CORPUSCULAR HEMOGLOBIN 29.8 pg (26.0-34.0); MEAN CORPUSCULAR VOLUME 90 fL (80-100); MONOCYTES # (AUTO) 1.3 K/uL (0.1-1.0); MONOCYTES % (AUTO) 9.7 % (2.0-9.0); NEUTROPHILS # (AUTO) 4.8 K/uL (1.8-7.7); NEUTROPHILS % (AUTO) 36.1 % (40.0-70.0); PLATELET COUNT (AUTO) 232 K/uL (150-450); RED BLOOD CELL COUNT(AUTO) 4.48 MIL/uL (4.00-5.20); RED CELL DISTRIBUTION WIDTH 16.2 % (11.5-14.5)
[2021-05-06 08:41] LABS: ALBUMIN 2.5 g/dL (3.4-5.0); BILIRUBIN,TOTAL 0.8 mg/dL (0.1-1.0); CALCIUM, TOTAL 9.7 mg/dL (8.8-10.5); CREATININE 1.03 mg/dL (0.60-1.30); POTASSIUM 3.7 mmol/L (3.5-5.1); TOTAL PROTEIN, SERUM 5.3 g/dL (6.4-8.2)
[2021-05-06] MEDS: OMEPRAZOLE 20 MG CAPSULE PO SCH (08:56)
[2021-05-06] MEDS: POTASSIUM CHLORIDE 20 MEQ ER TABLET PO SCH (08:56)
[2021-05-06] MEDS: CARVEDILOL 6.25 MG TABLET PO SCH (08:56)
[2021-05-06] MEDS: ARFORMOTEROL TARTRATE 15 MCG IH SCH (08:57)
[2021-05-06] MEDS: BUMETANIDE 1 MG TABLET PO SCH (08:57)
[2021-05-06] MEDS: DOCUSATE SODIUM 100 MG CAPSULE PO SCH (08:57)
[2021-05-06] MEDS: APIXABAN 5 MG TABLET PO SCH (08:57)
[2021-05-06] MEDS: BUDESONIDE 0.5 MG/2 ML NEB SOLUTION NEB SCH (08:57)
[2021-05-06] MEDS: NYSTATIN 30 GM CREAM TP SCH (09:00)
[2021-05-06] MEDS ORDERED: PredniSONE 5 MG TABLET PO ONE (09:00)
[2021-05-06] MEDS: ALBUTEROL SULFATE/IPRATROPIUM 100-20 MCG/SPRAY 4 GM INHALER IH SCH (09:00)
[2021-05-06] MEDS ORDERED: CEFEPIME HCL 2 GM in DEXTROSE 5%-WATER 50 ML IV ONE (11:00)
[2021-05-06 11:49] VITALS: BP 126/58
[2021-05-06 16:19] LABS: GLUCOMETER DEV NAME(LOC) 5S.2B; GLUCOSE,POINT OF CARE 178 MG/DL (70-110)
[2021-05-07] MEDS ORDERED: BUMETANIDE 1 MG TABLET PO SCH (09:00)
== END 2021-05-06 14:50 | disposition home health service (06) | DRG 689 ==
LOC: EMS 13:51 → 5S 17:07
PROVIDERS: ADMIT Internal Medicine Geriatric Medicine; ATTEND Internal Medicine Geriatric Medicine
DX: N39.0 Urinary tract infection, site not specified (principal); J18.9 Pneumonia, unspecified organism; G93.40 Encephalopathy, unspecified; I50.42 Chronic combined systolic (congestive) and diastolic (congestive) heart failure; I82.432 Acute embolism and thrombosis of left popliteal vein; N17.9 Acute kidney failure, unspecified; N18.4 Chronic kidney disease, stage 4 (severe); D68.69 Other thrombophilia; I13.0 Hypertensive heart and chronic kidney disease with heart failure and stage 1 through stage 4 chronic kidney disease, or unspecified chronic kidney disease; E87.0 Hyperosmolality and hypernatremia; E87.3 Alkalosis; I42.8 Other cardiomyopathies; Z68.41 Body mass index [BMI] 40.0-44.9, adult; J44.0 Chronic obstructive pulmonary disease with (acute) lower respiratory infection; I24.9 Acute ischemic heart disease, unspecified; M81.0 Age-related osteoporosis without current pathological fracture; E11.22 Type 2 diabetes mellitus with diabetic chronic kidney disease; T38.0X5A Adverse effect of glucocorticoids and synthetic analogues, initial encounter; Z20.822 Contact with and (suspected) exposure to COVID-19; G30.9 Alzheimer's disease, unspecified; F02.80 Dementia in other diseases classified elsewhere, unspecified severity, without behavioral disturbance, psychotic disturbance, mood disturbance, and anxiety; E78.5 Hyperlipidemia, unspecified; E66.9 Obesity, unspecified; R62.7 Adult failure to thrive; B96.5 Pseudomonas (aeruginosa) (mallei) (pseudomallei) as the cause of diseases classified elsewhere; M10.9 Gout, unspecified; I48.0 Paroxysmal atrial fibrillation; Z95.810 Presence of automatic (implantable) cardiac defibrillator; Z90.710 Acquired absence of both cervix and uterus; Z87.891 Personal history of nicotine dependence; Z87.440 Personal history of urinary (tract) infections; Z86.718 Personal history of other venous thrombosis and embolism; Z79.899 Other long term (current) drug therapy; Z86.711 Personal history of pulmonary embolism; Z79.02 Long term (current) use of antithrombotics/antiplatelets; Z88.8 Allergy status to other drugs, medicaments and biological substances; Z88.1 Allergy status to other antibiotic agents; Z90.49 Acquired absence of other specified parts of digestive tract; Y92.89 Other specified places as the place of occurrence of the external cause; Z79.2 Long term (current) use of antibiotics
CPT/HCPCS: 71045; 71250; 76770; 80048; 80053; 80061; 81001; 82550; 82962; 83036; 83605; 83690; 83735; 83880; 84100; 84145; 84439; 84443; 84484; 84550; 85025; 85610; 85730; 86592; 87040; 87086; 87205; 87804; 93005; 93306; 93970; 94640; 97110; 97116; 97163; 97167; 97530; 97535; 99285; A9575; G0238; G0378; J0692; J1644; J1815; J2543; J2920; J3490; J7030; J7050; J7060; 36415-L1; 36415-TC; J7512; Z7610

== ENCOUNTER → 2021-05-08 | Outpatient (CLI) | payer MEDICARE, OTHER ==
[~2021-05-08] MED LIST changes: +APIX5TAB PO; +ARFO15VI2 NEB; +BUDE0.5A3 NEB; +BUME1TAB6 PO; +CARV6 PO; +DOCU100C34 PO; +INSU100I3 SQ; +INSU100V12 SQ; +IPRA4AER IH; +OMEP20 PO; +PANT-31 PO; -PERFLUTREN PROTEIN-A MICROSPHERES 0.22 MG/ML 3 ML VIAL IVP ONE; +POTA20TA83 PO; +PRED20 PO; +[UNRECOGNIZED DRUG - CODE] PO; +[UNRECOGNIZED DRUG - CODE] PO
[2021-05-08 12:41] LABS: APPEARANCE,URINE CLEAR (CLEAR); BILIRUBIN,URINE NEGATIVE (NEGATIVE); GLUCOSE, URINE (UA) NEGATIVE (NEGATIVE); KETONES,URINE NEGATIVE (NEGATIVE); LEUKOCYTE ESTERASE ,URINE NEGATIVE (NEGATIVE); NITRATE,URINE NEGATIVE (NEGATIVE); OCCULT BLOOD,URINE NEGATIVE (NEGATIVE); PH,URINE 6.5 (5.0-8.0); PROTEIN,URINE NEGATIVE (NEGATIVE); UROBILINOGEN,URINE 0.2 mg/dL (<=1.0)
== END | disposition home or self-care (01) ==
LOC: LABMN 10:57
PROVIDERS: ATTEND Internal Medicine Geriatric Medicine
DX: N39.0 Urinary tract infection, site not specified (principal)
CPT/HCPCS: 81003